=== PATIENT | male | born 1990 | race Caucasian/White ===

== ENCOUNTER 2017-05-26 03:16 | Emergency (ER) | payer SELFPAY ==
--- NOTE | 2017-05-26 03:27 | EDM.PDOC ---
ED HPI GENERAL MEDICAL PROBLEM - General Chief Complaint: Drug or Alcohol Abuse Stated Complaint: AMBULANCE Time Seen by Provider: 05/26/17 03:18 Source of Information: Reports: Patient, EMS, RN - History of Present Illness INITIAL COMMENTS - FREE TEXT/NARRATIVE: He was brought by EMS. They were called because the patient was found by his girlfriend in his apartment unresponsive. He had no cardiac arrest known but when EMS arrived he had gasping respirations with a respiratory rate of about 2 per minute. He was unresponsive. However he received 0.4 mg narcan and promptly became alert. He states that he has used heroin in the past. however, he has no memory of what happened last night. He had some alcohol and then he remembers waking up with EMS. He has no headache. - Related Data Allergies Allergy/AdvReac Type Severity Reaction Status Date / Time No Known Allergies Allergy Verified 05/26/17 03:24 Home Meds: Home Meds . [No Known Home Meds] 12/17/15 [History] Past Medical History HEENT History: Reports: Impaired Vision Cardiovascular History: Reports: None Respiratory History: Reports: None Gastrointestinal History: Reports: None Genitourinary History: Reports: None Musculoskeletal History: Reports: Fracture Neurological History: Reports: None Psychiatric History: Reports: None, Other (See Below) (substance abuse; heroin) Endocrine/Metabolic History: Reports: None Hematologic History: Reports: None Immunologic History: Reports: None Oncologic (Cancer) History: Reports: None Dermatologic History: Reports: None - Infectious Disease History Infectious Disease History: Reports: Chicken Pox - Past Surgical History Musculoskeletal Surgical History: Reports: Other (See Below) Social & Family History - Family History Family Medical History: Noncontributory - Tobacco Use Smoking Status *Q: Current Every Day Smoker Years of Tobacco use: 6 Packs/Tins Daily: 0.5 - Recreational Drug Use Recreational Drug Use: Yes Drug Use in Last 12 Months: Yes Recreational Drug Type: Reports: Marijuana/Hashish Recreational Drug Use Frequency: Weekly ED ROS GENERAL - Review of Systems Review Of Systems: See Below Constitutional: Denies: Fever, Chills Respiratory: Denies: Shortness of Breath, Wheezing, Sputum Cardiovascular: Denies: Chest Pain GI/Abdominal: Denies: Abdominal Pain - Physical Exam Exam: See Below Text/Narrative:: alert head atraumatic neck supple and non tender numerous tattoos lungs CTA heart RRR without m abdomen non tender conversant and cooperative extremities non tender Course - Vital Signs Last Recorded V/S: Last Vital Signs Temp 97.4 F 05/26/17 03:17 Pulse 113 H 05/26/17 04:15 Resp 18 05/26/17 04:15 BP 136/86 05/26/17 04:15 Pulse Ox 96 05/26/17 04:15 - Orders/Labs/Meds Orders: Active Orders 24 hr Category Date Time Status Cardiac Monitoring [RC] . DIRECTED Care 05/26/17 03:20 Active EKG Documentation Completion [RC] STAT Care 05/26/17 03:20 Active CXR [Chest 1V Frontal] [CR] Stat Exams 05/26/17 03:20 Taken DRUG SCREEN, URINE [URCHEM] Stat Lab 05/26/17 03:47 Ordered Sodium Chloride 0.9% [Normal Saline] 1,000 ml Med 05/26/17 03:30 Active IV ASDIRECTED Medication Orders Sodium Chloride (Normal Saline) 1,000 mls @ 150 mls/hr IV ASDIRECTED OSKAR Labs: Laboratory Tests 05/26/17 05/26/17 05/26/17 Range/Units 03:42 03:42 03:42 WBC 10.04 (4.0-11.0) K/uL RBC 4.68 (4.50-5.90) M/uL Hgb 15.2 (13.0-17.0) g/dL Hct 44.2 (38.0-50.0) % MCV 94.4 (80.0-98.0) fL MCH 32.5 H (27.0-32.0) pg MCHC 34.4 (31.0-37.0) g/dL RDW Std Deviation 51.7 (28.0-62.0) fl RDW Coeff of Sonja 15 (11.0-15.0) % Plt Count 159 (150-400) K/uL MPV 11.90 (7.40-12.00) fL Neut % (Auto) 72.0 (48.0-80.0) % Lymph % (Auto) 21.8 (16.0-40.0) % Pike % (Auto) 5.4 (0.0-15.0) % Eos % (Auto) 0.5 (0.0-7.0) % Baso % (Auto) 0.3 (0.0-1.5) % Neut # (Auto) 7.2 H (1.4-5.7) K/uL Lymph # (Auto) 2.2 (0.6-2.4) K/uL Pike # (Auto) 0.5 (0.0-0.8) K/uL Eos # (Auto) 0.1 (0.0-0.7) K/uL Baso # (Auto) 0.0 (0.0-0.1) K/uL Nucleated RBC % 0.0 /100WBC Nucleated RBCs # 0 K/uL Sodium 143 (136-146) mmol/L Potassium 3.8 (3.5-5.1) mmol/L Chloride 111 H (98-110) mmol/L Carbon Dioxide 18 L (21-31) mmol/L BUN 7 (6.0-23.0) mg/dL Creatinine 0.9 (0.6-1.5) mg/dL Est Cr Clr Drug Dosing 128.80 mL/min Estimated GFR (MDRD) > 60.0 ml/min Glucose 124 H (60-110) mg/dL Calcium 8.7 L (8.8-10.8) mg/dL Total Bilirubin 0.2 (0.1-1.5) mg/dL AST 110 H (5-40) IU/L ALT 136 H (8-54) IU/L Alkaline Phosphatase 90 (40-150) Troponin I < 0.10 (0.0-0.29) NG/ML Total Protein 7.2 (6.0-8.0) g/dL Albumin 3.9 (3.5-5.0) g/dL Globulin 3.3 (2.0-3.5) g/dL Albumin/Globulin Ratio 1.2 L (1.3-2.8) Ethyl Alcohol 180.2 mg/dL Meds: Medications Generic Name Dose Route Start Last Admin Trade Name Freq PRN Reason Stop Dose Admin Sodium Chloride 1,000 mls @ 150 mls/hr 05/26/17 03:30 Normal Saline IV ASDIRECTED OSKAR - Re-Assessments/Exams Free Text/Narrative Re-Assessment/Exam: 05/26/17 03:57 He states that he wants to go home. I advised regarding EKG findings and also regarding the risk of recurrence of symptoms as the narcan effect may "wear off " before the opiate effect. He verbalized understanding. Departure - Departure Time of Disposition: 04:19 Disposition: Against Medical Advice 07 Clinical Impression: Opiate overdose - Discharge Information Instructions: Opioid Overdose Referrals: PCP,None [Primary Care Provider] - Forms: ED Department Discharge - My Orders Last 24 Hours: My Active Orders 05/26/17 03:20 Cardiac Monitoring [RC] . DIRECTED EKG Documentation Completion [RC] STAT CXR [Chest 1V Frontal] [CR] Stat 05/26/17 03:30 Sodium Chloride 0.9% [Normal Saline] 1,000 ml IV ASDIRECTED 05/26/17 03:47 DRUG SCREEN, URINE [URCHEM] Stat - Assessment/Plan Last 24 Hours: My Active Orders 05/26/17 03:20 Cardiac Monitoring [RC] . DIRECTED EKG Documentation Completion [RC] STAT CXR [Chest 1V Frontal] [CR] Stat 05/26/17 03:30 Sodium Chloride 0.9% [Normal Saline] 1,000 ml IV ASDIRECTED 05/26/17 03:47 DRUG SCREEN, URINE [URCHEM] Stat
[2017-05-26] MEDS ORDERED: Sodium Chloride 0.9% 1,000 ML IV SCH (03:30)
[2017-05-26 04:10] LABS: CHLORIDE,CL 111 mmol/L (98-110); SODIUM,NA 143 mmol/L (136-146)
[2017-05-26 04:16] VITALS: BP 136/86
--- NOTE | 2017-05-28 17:18 | CR ---
EXAM DATE: 05/26/17 PATIENT'S AGE: 26 Patient: ARIES ZARAGOZA Facility: [place], [place] Site . Site : 1990 Study: XRay Chest [id number]/23/2017 4:01:27 AM Ordering Physician: Doctor Cuellar Final Report: INDICATION: Loss of consciousness TECHNIQUE: Chest radiograph 1 view COMPARISON: 12/17/15 FINDINGS: Cardiovascular and mediastinum: The cardiac silhouette is normal in appearance and size. Mediastinum is within normal limits. Lungs and pleural space: Both lungs are unremarkable in appearance. No sign of pleural effusion. No pneumothorax is seen. Bones and soft tissues: No significant findings. IMPRESSION: 1. No acute cardiopulmonary disease seen. Dictated by: Elmer Aldrich MD @ 05/26/2017 04:04:00 (Electronic Signature) Report Signed by Proxy. DEJON
== END 2017-05-26 04:22 | disposition left against medical advice (07) ==
LOC: MW.ED 03:16
DX: T40.1X1A Poisoning by heroin, accidental (unintentional), initial encounter (principal); F17.210 Nicotine dependence, cigarettes, uncomplicated
CPT/HCPCS: 36415; 71010; 80053; 84484; 85025; 93005; 99285; G0480; 99283

== ENCOUNTER 2017-06-17 10:50 | Emergency (ER) | payer SELFPAY ==
[2017-06-17] MEDS ORDERED: Succinylcholine 200 MG/10 ML MDV IV ONE (11:19)
[2017-06-17] MEDS ORDERED: Ziprasidone Mesylate 20 MG Vial ONE (11:30)
[2017-06-17] MEDS ORDERED: Sodium Chloride 0.9% 1,000 ML IV ONE ×3 (11:34→14:17)
--- NOTE | 2017-06-17 11:41 | EDM.PDOC ---
ED HPI GENERAL MEDICAL PROBLEM - General Stated Complaint: DRUG OVERDOSE Time Seen by Provider: 06/17/17 11:36 Source of Information: Reports: Patient - History of Present Illness INITIAL COMMENTS - FREE TEXT/NARRATIVE: HISTORY AND PHYSICAL: History of present illness: []Patient arrives via EMS Patient was found unresponsive in his home, has a history of known drug abuse, EMS had responded to his home last week and provided Narcan after a presumed heroin overdose. At that time he responded well he was alert calm. Today a similar call he was found down in his bathroom of his home. they did provide 6 mg of Narcan intranasally, initial [place] Coma Scale was 3 and he did improved to 8 with Narcan, he arrives maintaining a [place] Coma Scale of 8. There was blood coming from his mouth, source indeterminate, I believe he bit his tongue. He required suction on arrival. With difficulty getting IV access , I/O later removed placed in the left lower extremity. 0.4 milligrams Narcan IV on arrival to the emergency room glucose reading 171 per EMS patient maintain [place] Coma Scale of 8, he was intubated to protect his airway Ultimately IV access right upper extremity we did intubate the patient using 100 mg of succinylcholine and 2 of Versed and a total of 100 mg of rocuronium . initial ET tube placement 28 cm at the lips. Chest x-ray tube is right main stem retracted 3 cm to 25 at the lips. Ultimately intubated without complication no further history at this time Review of systems: As per history of present illness and below otherwise all systems reviewed and negative. Past medical history: As per history of present illness and as reviewed below otherwise noncontributory. Surgical history: As per history of present illness and as reviewed below otherwise noncontributory. Social history: No reported history of drug or alcohol abuse. Family history: As per history of present illness and as reviewed below otherwise noncontributory. Physical exam: HEENT: Atraumatic, normocephalic, pupils reactive, negative for conjunctival pallor or scleral icterus, mucous membranes moist, throat clear, neck supple, nontender, trachea midline. Lungs: Clear to auscultation, breath sounds equal bilaterally, chest nontender. Heart: S1S2, regular, negative for clicks, rubs, or JVD. Abdomen: Soft, nondistended, nontender. Negative for masses or hepatosplenomegaly. Negative for costovertebral tenderness. Pelvis: Stable nontender. Genitourinary: Deferred. Rectal: Deferred. Extremities: Atraumatic, negative for cords or calf pain. Neurovascular unremarkable. Neuro: [place] Coma Scale 8 Diagnostics: []Lab as below EKG Chest 1 view Therapeutics: []1 L normal saline bolus 100 mg succinylcholine 2 mg Versed 70 mg rocuronium Impression: [place] Coma Scale 8 Intubation ET tube 24 cm at the teethteeth Hemodynamically stable []Presumed overdose Possible brain /anoxic injury Lab pending at time of dictation Definitive disposition and diagnosis as appropriate pending reevaluation and review of above. - Related Data Allergies Allergy/AdvReac Type Severity Reaction Status Date / Time Unable to Assess Allergy Unverified 06/17/17 11:48 Home Meds: Home Meds . [No Known Home Meds] 12/17/15 [History] Past Medical History - Past Health History Medical/Surgical History: Denies Medical/Surgical History HEENT History: Reports: Impaired Vision Cardiovascular History: Reports: None Respiratory History: Reports: None Gastrointestinal History: Reports: None Genitourinary History: Reports: None Musculoskeletal History: Reports: Fracture Neurological History: Reports: None Psychiatric History: Reports: None, Other (See Below) (substance abuse; heroin) Endocrine/Metabolic History: Reports: None Hematologic History: Reports: None Immunologic History: Reports: None Oncologic (Cancer) History: Reports: None Dermatologic History: Reports: None - Infectious Disease History Infectious Disease History: Reports: Chicken Pox - Past Surgical History Musculoskeletal Surgical History: Reports: Other (See Below) Social & Family History - Family History Family Medical History: Noncontributory - Tobacco Use Smoking Status *Q: Current Every Day Smoker Years of Tobacco use: 6 Packs/Tins Daily: 0.5 - Caffeine Use Caffeine Use: Reports: Coffee, Energy Drinks - Recreational Drug Use Recreational Drug Use: Yes Drug Use in Last 12 Months: Yes Recreational Drug Type: Reports: Marijuana/Hashish Recreational Drug Use Frequency: Weekly Recreational Drug Last Use: "a long time ago" ED ROS GENERAL - Review of Systems Review Of Systems: ROS reveals no pertinent complaints other than HPI. ED EXAM, GENERAL - Physical Exam Exam: See Below Course - Vital Signs Last Recorded V/S: Last Vital Signs Temp 35.8 C 06/17/17 11:40 Pulse 150 H 06/17/17 11:40 Resp 8 L 06/17/17 11:40 BP 191/131 H 06/17/17 11:40 Pulse Ox 92 L 06/17/17 11:40 - Orders/Labs/Meds Orders: Active Orders 24 hr Category Date Time Status EKG Documentation Completion [RC] STAT Care 06/17/17 11:34 Active Chest 1V Frontal [CR] Stat Exams 06/17/17 11:34 Taken AMYLASE [CHEM] Stat Lab 06/17/17 11:35 Received CBC WITH AUTO DIFF [HEME] Stat Lab 06/17/17 11:35 Received COMPREHENSIVE METABOLIC PN,CMP [CHEM] Stat Lab 06/17/17 11:35 Received ETHANOL BLOOD MEDICAL [CHEM] Stat Lab 06/17/17 11:35 Received LIPASE [CHEM] Stat Lab 06/17/17 11:35 Received TSH [CHEM] Stat Lab 06/17/17 11:35 Received Sodium Chloride 0.9% [Normal Saline] 1,000 ml Med 06/17/17 11:34 Active IV STAT Medication Orders Sodium Chloride (Normal Saline) 1,000 mls @ 999 mls/hr IV STAT ONE Stop: 06/17/17 12:34 Labs: Laboratory Tests 06/17/17 06/17/17 06/17/17 Range/Units 11:30 11:30 11:35 ABG pH (7.35-7.45) ABG pCO2 (35-45) mmHG ABG pO2 (75-100) mmHG ABG HCO3 (22-26) mEq/L ABG Total CO2 ABG Base Excess (-2.0-2.0) Troponin I < 0.10 (0.0-0.29) NG/ML Urine Color YELLOW Urine Appearance CLEAR Urine pH 6.0 (5.0-8.0) Ur Specific [place] >= 1.030 (1.001-1.035) Urine Protein >=300 (NEGATIVE) mg/dL Urine Glucose (UA) NEGATIVE (NEGATIVE) mg/dL Urine Ketones NEGATIVE (NEGATIVE) mg/dL Urine Occult Blood MODERATE (NEGATIVE) Urine Nitrite NEGATIVE (NEGATIVE) Urine Bilirubin NEGATIVE (NEGATIVE) Urine Urobilinogen 0.2 (<2.0) EU/dL Ur Leukocyte Esterase NEGATIVE (NEGATIVE) Urine RBC 2-5 (0-2/HPF) Urine WBC 5-8 (0-5/HPF) Ur Epithelial Cells RARE (NONE-FEW) Amorphous Sediment LIGHT (NEGATIVE) Urine Bacteria NOT SEEN (NEGATIVE) Urine Mucus LIGHT (NONE-MOD) Urine Opiates Screen POSITIVE (NEGATIVE) Ur Oxycodone Screen NEGATIVE (NEGATIVE) Urine Methadone Screen NEGATIVE (NEGATIVE) Ur Barbiturates Screen NEGATIVE (NEGATIVE) Ur Phencyclidine Scrn NEGATIVE (NEGATIVE) Ur Amphetamine Screen NEGATIVE (NEGATIVE) U Methamphetamines Scrn NEGATIVE (NEGATIVE) U Benzodiazepines Scrn NEGATIVE (NEGATIVE) U Cocaine Metab Screen NEGATIVE (NEGATIVE) U Marijuana (THC) Screen NEGATIVE (NEGATIVE) 06/17/17 Range/Units 11:54 ABG pH 7.016 L* (7.35-7.45) ABG pCO2 59 H (35-45) mmHG ABG pO2 545 H (75-100) mmHG ABG HCO3 15 L (22-26) mEq/L ABG Total CO2 14.8 ABG Base Excess -16.5 L (-2.0-2.0) Troponin I (0.0-0.29) NG/ML Urine Color Urine Appearance Urine pH (5.0-8.0) Ur Specific [place] (1.001-1.035) Urine Protein (NEGATIVE) mg/dL Urine Glucose (UA) (NEGATIVE) mg/dL Urine Ketones (NEGATIVE) mg/dL Urine Occult Blood (NEGATIVE) Urine Nitrite (NEGATIVE) Urine Bilirubin (NEGATIVE) Urine Urobilinogen (<2.0) EU/dL Ur Leukocyte Esterase (NEGATIVE) Urine RBC (0-2/HPF) Urine WBC (0-5/HPF) Ur Epithelial Cells (NONE-FEW) Amorphous Sediment (NEGATIVE) Urine Bacteria (NEGATIVE) Urine Mucus (NONE-MOD) Urine Opiates Screen (NEGATIVE) Ur Oxycodone Screen (NEGATIVE) Urine Methadone Screen (NEGATIVE) Ur Barbiturates Screen (NEGATIVE) Ur Phencyclidine Scrn (NEGATIVE) Ur Amphetamine Screen (NEGATIVE) U Methamphetamines Scrn (NEGATIVE) U Benzodiazepines Scrn (NEGATIVE) U Cocaine Metab Screen (NEGATIVE) U Marijuana (THC) Screen (NEGATIVE) Meds: Medications Generic Name Dose Route Start Last Admin Trade Name Freq PRN Reason Stop Dose Admin Sodium Chloride 1,000 mls @ 999 mls/hr 06/17/17 11:34 Normal Saline IV 06/17/17 12:34 STAT ONE Discontinued Medications Generic Name Dose Route Start Last Admin Trade Name Freq PRN Reason Stop Dose Admin Propofol Confirm 06/17/17 11:40 Diprivan 50 Ml Administered 06/17/17 11:41 Dose 50 mls @ as directed .ROUTE .STK-MED ONE Departure - Departure Time of Disposition: 12:12 Disposition: DC/Tfer to Other 70 Condition: Poor Clinical Impression: Altered mental status, [place] coma scale score 3-8, at arrival to emergency department - Discharge Information Referrals: PCP,None [Primary Care Provider] - - My Orders Last 24 Hours: My Active Orders 06/17/17 11:34 EKG Documentation Completion [RC] STAT Chest 1V Frontal [CR] Stat Sodium Chloride 0.9% [Normal Saline] 1,000 ml IV STAT 06/17/17 11:35 AMYLASE [CHEM] Stat CBC WITH AUTO DIFF [HEME] Stat COMPREHENSIVE METABOLIC PN,CMP [CHEM] Stat ETHANOL BLOOD MEDICAL [CHEM] Stat LIPASE [CHEM] Stat TSH [CHEM] Stat - Assessment/Plan Last 24 Hours: My Active Orders 06/17/17 11:34 EKG Documentation Completion [RC] STAT Chest 1V Frontal [CR] Stat Sodium Chloride 0.9% [Normal Saline] 1,000 ml IV STAT 06/17/17 11:35 AMYLASE [CHEM] Stat CBC WITH AUTO DIFF [HEME] Stat COMPREHENSIVE METABOLIC PN,CMP [CHEM] Stat ETHANOL BLOOD MEDICAL [CHEM] Stat LIPASE [CHEM] Stat TSH [CHEM] Stat
[2017-06-17 12:00] VITALS: BP 191/131
[2017-06-17 12:06] LABS: CHLORIDE,CL 110 mmol/L (98-110); SODIUM,NA 145 mmol/L (136-146)
--- NOTE | 2017-06-17 12:12 | PCM.SN ---
- Free Text/Narrative Note: Called for patient in Respiratory distress and Dr Griffiths is requesting intubation. On my arrival the patient was intubated by Dr Griffiths prior to my arrival. ETT currently 8.0 ETT 28cm at the teeth. CXR pending, ABG ordered by me, Propofol drip also started by me at 50mcg/kg/min. The patient had received a total of Rocuronium 70mg IV. While I was obtaining the ABG the patient started to move again. Propofol infusion was increased to 70mcg/kg/min and an additional 30mg of Rocuronium IV was given by me as well. Rt wrist was prepped, Rt radial artery was palpated 22g needle was introduced and 1mL of pulsatile bright red blood was obtained. 20g PIV was started to Right wrist and 10mL of blood was obtained by me at that time. Secured with tape and tegaderm. VSS at this time. Flight team is at the bedside at this time as well.
[2017-06-17] MEDS ORDERED: Rocuronium 10 MG/ML 10 ML Syringe ONE (13:19)
[2017-06-17] MEDS ORDERED: Ondansetron 4 MG/2 ML SDV ONE (13:19)
[2017-06-17] MEDS ORDERED: Midazolam 1 MG/ML 2 ML SDV ONE (13:19)
[2017-06-17] MEDS ORDERED: fentaNYL 100 MCG/2 ML SDV ONE (13:19)
[2017-06-17] MEDS ORDERED: Lidocaine 2% 5 ML SDV ONE (13:19)
[2017-06-17] MEDS ORDERED: Succinylcholine/Normal Saline 200 MG/10 ML Syringe ONE (13:19)
[2017-06-17] MEDS ORDERED: Propofol 200 MG/20 ML SDV ONE (13:19)
[2017-06-17] MEDS ORDERED: Ziprasidone Mesylate 20 MG in Water For Injection, Sterile 1.2 ML IM ONE (14:01)
[2017-06-17] MEDS ORDERED: Midazolam 1 MG/ML 2 ML SDV IVPUSH ONE (14:05)
[2017-06-17] MEDS ORDERED: Naloxone 0.4 MG/ML Syringe IVPUSH ONE (14:05)
[2017-06-17] MEDS ORDERED: Dexamethasone 4 MG/ML 5 ML MDV ONE (14:08)
--- NOTE | 2017-06-18 13:30 | CR ---
EXAM DATE: 06/17/17 PATIENT'S AGE: 27 Patient: ARIES ZARAGOZA Facility: [place], [place] Site . Site : 1990 Study: XRay Chest [id number]/15/2017 11:41:28 AM Ordering Physician: Doctor Cuellar Final Report: INDICATION: Intubation. Technique: AP portable chest x-ray. Comparison: Chest x-ray 05/26/2017. Findings: Patient has been intubated and the endotracheal tube is extending into the proximal most right mainstem bronchus and should be pulled back 3-4 cm. Mediastinum is slightly more prominent likely related to technique. Heart size normal. No focal infiltrate or consolidation in either lung. Tiny nodule in the left upper lung may be a granuloma. Chest otherwise unremarkable. Dictated by Ruiz Lainez MD @ Jun 17 2017 12:24PM (Electronic Signature) Report Signed by Proxy. DEJON
== END 2017-06-17 12:45 | disposition other institution (70) ==
LOC: MW.ED 11:31
DX: R40.2432 Glasgow coma scale score 3-8, at arrival to emergency department (principal)
CPT/HCPCS: 31500; 36415; 36600; 43753; 71010; 80053; 80305; 81001; 82150; 82803; 83690; 84443; 84484; 85025; 93005; 96360; 96361; 96372; 96374; 96375; 99291; 99292; A9270; G0480; J0330; J2250; J3486; J7040; 36410; 99284; J1100; J2405; J2704; J3010